=== PATIENT | male | born 1965 | race Caucasian/White ===

== ENCOUNTER 2019-05-08 16:02 | Emergency (ER) | payer BC, OTHER ==
[~2019-05-08 16:02] MED LIST: HYDR-3165 PO
--- NOTE | 2019-05-08 16:24 | PHYS DOC ---
Past History Past Medical History: Diverticulitis (PARUL CARLTON Jr. DO) Past Surgical History: Other (PARUL CARLTON Jr., DO) Alcohol Use: None Drug Use: None (PARUL CARLTON Jr., DO) Adult General Chief Complaint Chief Complaint: Abd pain [facility] Patient is a 53-year-old male who presents with complaint of left lower quadrant abdominal pain that started 2 days ago. Patient rates pain at about a 4 out of 10. He states that he does have a history of diverticulitis and states that his last episode was about 4 years ago. He denies any nausea or vomiting. He also denies any diarrhea. He has had some constipation. He states the pain is worsened with palpation. He states that nothing has been improving symptoms.[] (PARUL CARLTON Jr., DO) Review of Systems Review of Systems Constitutional: Denies fever or chills [] Respiratory: Denies cough or shortness of breath [] Cardiovascular: No additional information not addressed in [facility] [] GI: Complains of left lower quadrant abdominal pain without vomiting or diarrhea [] : Denies dysuria or hematuria [] Integument: Denies rash or skin lesions [] Neurologic: Denies headache, focal weakness or sensory changes [] All other systems were reviewed and found to be within normal limits, except as documented in this note. (PARUL CARLTON Jr., DO) Allergies Allergies Allergies Coded Allergies Type Severity Reaction Last Updated Verified Sulfa (Sulfonamide Antibiotics) Adverse Reaction Intermediate feet swelled up 01/05/15 Yes (PARUL CARLTON Jr., DO) Physical Exam Physical Exam Constitutional: Well developed, well nourished, no acute distress, non-toxic appearance. [] HENT: Normocephalic, atraumatic, bilateral external ears normal, oropharynx moist, no oral exudates, nose normal. [] Eyes: PERRLA, EOMI, conjunctiva normal, no discharge. [] Neck: Normal range of motion, no tenderness, supple, no stridor. [] Cardiovascular: Regular rate rhythm[] Lungs & Thorax: Bilateral breath sounds clear to auscultation [] Abdomen: Bowel sounds normal, soft, with moderate left lower quadrant tenderness. [] Skin: Warm, dry, no erythema, no rash. [] Extremities: No tenderness, no cyanosis, no clubbing, ROM intact. [] Neurologic: Alert and oriented X 3, no focal deficits noted. [] (PARUL CARLTON Jr. DO) EKG EKG [] (PARUL CARLTON Jr. DO) Radiology/Procedures Radiology/Procedures [] Impressions: PROCEDURE: CT ABD PELV W/ IV CONTRST ONLY EXAM: Abdomen and pelvis CT with intravenous contrast. HISTORY: Pain. TECHNIQUE: Computed tomographic images of the abdomen and pelvis were obtained following the administration of 75 cc Isovue 370 intravenous contrast. Multiplanar reformatting was performed. *One or more of the following individualized dose reduction techniques were utilized for this examination: 1. Automated exposure control. 2. Adjustment of the mA and/or kV according to patient size. 3. Use of iterative reconstruction technique. COMPARISON: None. FINDINGS: Evaluation of the lower thorax is unremarkable. No hepatic lesion is seen. The gallbladder, pancreas, spleen and adrenal glands are unremarkable. There is mild nonspecific perinephric stranding. There is no hydronephrosis or suspicious solid or cystic renal lesion. The bladder is unremarkable. There is no appendicitis. There is no bowel obstruction. There is distal colonic diverticulosis. There is superimposed acute diverticulitis involving the mid sigmoid colon with associated contained perforation and abscess. The abscess measures approximate 8.5 cm in maximum dimension with surrounding inflammatory stranding. There are few reactive lymph nodes surrounding the aforementioned diverticular abscess. The aorta is normal in caliber. There is no suspicious osseous lesion. There are advanced degenerative changes involving the spine. IMPRESSION: 1. Acute diverticulitis involving the mid sigmoid colon with associated contained perforation and complex gas and fluid collection with surrounding stranding due to abscess formation. The abscess collection measures approximately 8.5 cm in maximum dimension. 2. Reactive lymphadenopathy surrounding the aforementioned mid sigmoid colon. Electronically signed by: Madison Lynn MD (05/08/2019 5:39 PM) [facility] DICTATED AND SIGNED BY: MADISON LYNN MD DATE: 05/08/191738 (PARUL CARLTON Jr. DO) Radiology/Procedures [address] [address] IMAGING REPORT Signed PATIENT: AARTI LOZANO AACCOUNT: [id number] : 1965 LOCATION: ER AGE: 53 SEX: M EXAM STATUS: PRE ER ORD. PHYSICIAN: PARUL CARLTON Jr., DO REASON: LLQ abd pain PROCEDURE: CT ABD PELV W/ IV CONTRST ONLY EXAM: Abdomen and pelvis CT with intravenous contrast. HISTORY: Pain. TECHNIQUE: Computed tomographic images of the abdomen and pelvis were obtained following the administration of 75 cc Isovue 370 intravenous contrast. Multiplanar reformatting was performed. *One or more of the following individualized dose reduction techniques were utilized for this examination: 1. Automated exposure control. 2. Adjustment of the mA and/or kV according to patient size. 3. Use of iterative reconstruction technique. COMPARISON: None. FINDINGS: Evaluation of the lower thorax is unremarkable. No hepatic lesion is seen. The gallbladder, pancreas, spleen and adrenal glands are unremarkable. There is mild nonspecific perinephric stranding. There is no hydronephrosis or suspicious solid or cystic renal lesion. The bladder is unremarkable. There is no appendicitis. There is no bowel obstruction. There is distal colonic diverticulosis. There is superimposed acute diverticulitis involving the mid sigmoid colon with associated contained perforation and abscess. The abscess measures approximate 8.5 cm in maximum dimension with surrounding inflammatory stranding. There are few reactive lymph nodes surrounding the aforementioned diverticular abscess. The aorta is normal in caliber. There is no suspicious osseous lesion. There are advanced degenerative changes involving the spine. IMPRESSION: 1. Acute diverticulitis involving the mid sigmoid colon with associated contained perforation and complex gas and fluid collection with surrounding stranding due to abscess formation. The abscess collection measures approximately 8.5 cm in maximum dimension. 2. Reactive lymphadenopathy surrounding the aforementioned mid sigmoid colon. Electronically signed by: Madison Lynn MD (05/08/2019 5:39 PM) [facility] DICTATED AND SIGNED BY: MADISON LYNN MD DATE: 05/08/19 1739 CC: PARUL CARLTON Jr., DO; AARTI WARREN MD ~ (SIENA ULLOA MD) Course & Med Decision Making Course & Med Decision Making Pertinent Labs and Imaging studies reviewed. (See chart for details) [] (PARUL CARLTON Jr., DO) Course & Med Decision Making See Dr. Carlton report for details and transfer. Impression: 1. Diverticular Abscess 8.5 cm 2. Leukocytosis 15.4 with 72 Segs 3. Albumin 2.7 Pt. requesting pain meds prior to his transfer. Hx. 3 prior rupture Diverticulitis episodes- no surgery required on those episodes. Will add Flagyl 500 and Morphine 10 SQ. Pending ambulance transfer at 1930 hrs. (SIENA ULLOA MD) Dragon Disclaimer Dragon Disclaimer This electronic medical record was generated, in whole or in part, using a voice recognition dictation system. (PARUL CARLTON Jr. DO) Departure Departure: Impression: Primary Impression: Diverticulitis of colon with perforation Disposition: [facility]-TR[facility] HOSP Condition: IMPROVED Referrals: AARTI WARREN MD (PCP) Dragtiti Disclaimer This chart was dictated in whole or in part using Voice Recognition software in a busy, high-work load, and often noisy Emergency Department environment. It may contain unintended and wholly unrecognized errors or omissions. (SIENA ULLOA MD) Problem Qualifiers Primary Impression: Diverticulitis of colon with perforation Diverticulitis bleeding: without bleeding Qualified Codes: K57.20 - Diverticulitis of large intestine with perforation and abscess without bleeding PARUL CARLTON Jr. DO May 08, 2019 16:24 SIENA ULLOA MD May 08, 2019 19:28
[2019-05-08] MEDS ORDERED: IOHEXOL 300 MG/ML 75 ML VIAL. IV ONE (16:45)
[2019-05-08 16:48] LABS: BASO # 0.1 x10^3/uL (0.0-0.2); BASO % 1 % (0-3); EOS # 0.1 x10^3/uL (0.0-0.7); EOS % 1 % (0-3); HEMATOCRIT 44.3 % (39.0-53.0); HEMOGLOBIN 14.3 g/dL (13.0-17.5); LYMPH # 1.4 x10^3/uL (1.0-4.8); LYMPH % 9 % (24-48); MEAN CORPUSCULAR HEMOGLOBIN 28 pg (25-35); MEAN CORPUSCULAR HGB CONC 32 g/dL (31-37); MEAN CORPUSCULAR VOLUME 88 fL (79-100); MONO # 1.3 x10^3/uL (0.0-1.1); MONO % 9 % (0-9); NEUT # 12.5 x10^3uL (1.8-7.7); NEUT % 81 % (31-73); PLATELET COUNT 288 x10^3/uL (140-400); RED BLOOD COUNT 5.02 x10^6/uL (4.30-5.70); RED CELL DISTRIBUTION WIDTH 13.4 % (11.5-14.5); WHITE BLOOD COUNT 15.4 x10^3/uL (4.0-11.0)
[2019-05-08 17:04] LABS: ALBUMIN 2.7 g/dL (3.4-5.0); ALBUMIN/GLOBULIN RATIO 0.6 (1.0-1.7); CALCIUM 8.7 mg/dL (8.5-10.1); CREATININE 0.9 mg/dL (0.7-1.3); POTASSIUM 4.2 mmol/L (3.5-5.1); TOTAL BILIRUBIN 0.3 mg/dL (0.2-1.0)
[2019-05-08 17:14] LABS: % BANDS 7 % (0-9); % LYMPHS 12 % (24-48); % MONOS 9 % (0-10); % SEGS 72 % (35-66); PLT ESTIMATE ADEQUATE (ADEQUATE)
[2019-05-08 17:15] LABS: HYPERSEGS PRESENT; TOXIC GRANULATION SLIGHT; TOXIC VACUOLATION SLIGHT
--- NOTE | 2019-05-08 17:42 | RAD ---
EXAM: Abdomen and pelvis CT with intravenous contrast. HISTORY: Pain. TECHNIQUE: Computed tomographic images of the abdomen and pelvis were obtained following the administration of 75 cc Isovue 370 intravenous contrast. Multiplanar reformatting was performed. *One or more of the following individualized dose reduction techniques were utilized for this examination: 1. Automated exposure control. 2. Adjustment of the mA and/or kV according to patient size. 3. Use of iterative reconstruction technique. COMPARISON: None. FINDINGS: Evaluation of the lower thorax is unremarkable. No hepatic lesion is seen. The gallbladder, pancreas, spleen and adrenal glands are unremarkable. There is mild nonspecific perinephric stranding. There is no hydronephrosis or suspicious solid or cystic renal lesion. The bladder is unremarkable. There is no appendicitis. There is no bowel obstruction. There is distal colonic diverticulosis. There is superimposed acute diverticulitis involving the mid sigmoid colon with associated contained perforation and abscess. The abscess measures approximate 8.5 cm in maximum dimension with surrounding inflammatory stranding. There are few reactive lymph nodes surrounding the aforementioned diverticular abscess. The aorta is normal in caliber. There is no suspicious osseous lesion. There are advanced degenerative changes involving the spine. IMPRESSION: 1. Acute diverticulitis involving the mid sigmoid colon with associated contained perforation and complex gas and fluid collection with surrounding stranding due to abscess formation. The abscess collection measures approximately 8.5 cm in maximum dimension. 2. Reactive lymphadenopathy surrounding the aforementioned mid sigmoid colon. Electronically signed by: Madison Baugh MD (05/08/2019 5:39 PM) [facility]
[2019-05-08] MEDS ORDERED: PIPERACILLIN/TAZOBACTAM 4.5 GM VIAL IV ONE (17:59)
[2019-05-08] MEDS ORDERED: IV NORMAL SALINE 50ML 50 ML ONE (17:59)
[2019-05-08] MEDS ORDERED: PIPERACILLIN/TAZOBACTAM 4.5 GM in IV NORMAL SALINE 50ML 50 ML IV ONE (18:00)
[2019-05-08] MEDS ORDERED: IV NORMAL SALINE 1,000ML 1,000 ML IV ONE (18:15)
[2019-05-08 19:01] LABS: BILIRUBIN,URINE NEG (NEG); CLARITY,URINE CLEAR; COLOR,URINE YELLOW; GLUCOSE,URINE NEG (NEG)
[2019-05-08 19:02] LABS: BACTERIA,URINE 0 /HPF (0-FEW); NITRITE,URINE NEG (NEG); RBC,URINE OCC /HPF (0-2); SQUAMOUS EPITHELIAL CELL,UR OCC /LPF; UROBILINOGEN,URINE 0.2 mg/dL (0.2 mg/dL); WBC,URINE 0 /HPF (0-4)
[2019-05-08] MEDS ORDERED: MORPHINE SULFATE 10 MG/ML SYRINGE. SQ ONE (19:30)
[2019-05-08 20:31] VITALS: BP 143/78
== END 2019-05-08 20:49 | disposition short-term general hospital (02) ==
LOC: ER 16:02
DX: K57.20 Diverticulitis of large intestine with perforation and abscess without bleeding (principal); D72.829 Elevated white blood cell count, unspecified; Z88.2 Allergy status to sulfonamides
CPT/HCPCS: 36415; 74177; 80053; 81001; 83690; 85007; 85025; 96365; 96367; 96372; 99285; J2270; J2543; J3490; Q9967; J7030

== ENCOUNTER 2019-05-18 18:35 | Emergency (ER) | payer BC ==
[~2019-05-18] VITALS: Ht 188 cm; Wt 112.9 kg
[2019-05-18] MEDS ORDERED: IV NORMAL SALINE 1,000ML 1,000 ML IV SCH (19:17)
[2019-05-18] MEDS ORDERED: IOHEXOL 300 MG/ML 75 ML VIAL. IV ONE (19:30)
--- NOTE | 2019-05-18 19:53 | PHYS DOC ---
Past History Past Medical History: Diverticulitis Past Surgical History: Other Additional Past Surgical Histo: GI drain Alcohol Use: None Drug Use: None Adult General Chief Complaint Chief Complaint: ABNORMAL LABS HPI HPI Patient is a 53 year old male who presents with complaint of abdominal pain. Patient was initially seen in the emergency department here at [place] on May 08, 2019. The patient was diagnosed with perforated diverticulitis and was transferred to [facility]. The patient was there for approximately one week and discharged after having a percutaneous drain placed while in the hospital. He was treated with IV Zosyn and was bridged to oral Cipro on discharge. Patient states strain was removed prior to discharge. The patient followed up with his primary doctor who repeated blood work today. Blood remarkable for a leukocytosis of 13.7. The patient states that over the past couple days he has felt increased fatigue and states that he is not feeling better at this time. He states he was told by his surgeon, Dr. Turner, that he should come back to the emergency department if symptoms were worsening. Denies any known fever. States he has continued left lower quadrant pain. Review of Systems Review of Systems Constitutional: Denies fever or chills [] Eyes: Denies change in visual acuity, redness, or eye pain [] HENT: Denies nasal congestion or sore throat [] Respiratory: Denies cough or shortness of breath [] Cardiovascular: Denies chest pain or edema[] GI: Abdominal pain, decreased appetite, constipation[] : Denies dysuria or hematuria [] Musculoskeletal: Denies back pain or joint pain [] Integument: Denies rash or skin lesions [] Neurologic: Denies headache, focal weakness or sensory changes [] All other systems were reviewed and found to be within normal limits, except as documented in this note. Current Medications Current Medications Current Medications Medications (Trade) Dose Ordered Sig/Thee Start Time Stop Time Status Last Admin Dose Admin Iohexol (Omnipaque 300 Mg/ml) 75 ml 1X ONCE 05/18/19 19:30 05/18/19 19:31 DC 05/18/19 19:35 75 ML Sodium Chloride 1,000 ml @ 1,000 mls/hr Q1H 05/18/19 19:17 05/18/19 20:16 05/18/19 19:17 1,000 MLS/HR Allergies Allergies Allergies Coded Allergies Type Severity Reaction Last Updated Verified Sulfa (Sulfonamide Antibiotics) Adverse Reaction Intermediate feet swelled up 01/05/15 Yes Physical Exam Physical Exam Constitutional: Alert, afebrile, appears in mild discomfort. [] HENT: Normocephalic, atraumatic, bilateral external ears normal, oropharynx moist, no oral exudates, nose normal. [] Eyes: PERRLA, EOMI, conjunctiva normal, no discharge. [] Neck: Normal range of motion, no tenderness, supple, no stridor. [] Cardiovascular:Heart rate regular rhythm, no murmur [] Lungs & Thorax: Bilateral breath sounds clear to auscultation [] Abdomen: Left lower quadrant tenderness to palpation with guarding, no rebound tenderness, hypoactive bowel sounds, percutaneous drain site appears clean, nonerythematous. [] Skin: Warm, dry, no erythema, no rash. [] Back: No tenderness, no CVA tenderness. [] Extremities: No tenderness, no cyanosis, no clubbing, ROM intact, no edema. [] Neurologic: Alert and oriented X 3, normal motor function, normal sensory function, no focal deficits noted. [] Current Patient Data Vital Signs Vital Signs Date Time Temp Pulse Resp B/P (MAP) Pulse Ox O2 Delivery O2 Flow Rate FiO2 05/18/19 19:10 98.1 76 16 98 Room Air Lab Results Current Medications Medications (Trade) Dose Ordered Sig/Thee Route PRN Reason Start Time Stop Time Status Last Admin Dose Admin Sodium Chloride 1,000 ml @ 1,000 mls/hr Q1H IV 05/18/19 19:17 05/18/19 20:16 DC 05/18/19 19:17 Iohexol (Omnipaque 300 Mg/ml) 75 ml 1X ONCE IV 05/18/19 19:30 05/18/19 19:31 DC 05/18/19 19:35 Piperacillin Sod/ Tazobactam Sod (Zosyn Per Pharmacy) 1 each PRN DAILY PRN MC SEE COMMENTS 05/18/19 21:00 UNV EKG EKG Not performed[] Radiology/Procedures Radiology/Procedures [address] [address] IMAGING REPORT Signed PATIENT: AARTI LOZANO AACCOUNT: [id number] : 1965 LOCATION: ER AGE: 53 SEX: M EXAM STATUS: REG ER ORD. PHYSICIAN: NIVIA GOMEZ MD REASON: Elevated WBC, recent perforated diverticulitis, weakness, dizzine PROCEDURE: CT ABD PELV W/ IV CONTRST ONLY Exam: CT abdomen and pelvis with contrast INDICATION: History of diverticulitis, elevated white blood cell count TECHNIQUE: Sequential axial images through the abdomen and pelvis obtained following the administration of 70 mL of Omni 300 IV contrast. Sagittal and coronal reformatted images were reconstructed from the axial data and reviewed. Comparisons: 05/08/2019 FINDINGS: Heart size is normal. No pericardial effusion. Visualized lung bases are clear. No pleural effusion. Liver, spleen, pancreas, gallbladder and adrenals are unremarkable. Kidneys demonstrate symmetric enhancement without perinephric inflammation or hydronephrosis. No renal or ureteral calculi are identified. Bladder is distended and appears thin-walled. Prostate is not enlarged. There is extensive inflammatory changes at the sigmoid colon in an area of diverticulosis. There is redemonstration of air and fluid collection within the mesentery just above the sigmoid colon measuring approximately 7.5 x 5.1 cm. Supposedly tract from prior drain is seen from the anterior abdominal wall. The remainder of the large and small bowel are unremarkable. No obstruction. No free intra-abdominal air or fluid. Abdominal aorta has a normal course and caliber. Abdominal vasculature is patent. No enlarged intra-abdominal lymph nodes are identified. No suspicious osseous lesions or acute fractures. IMPRESSION: Acute diverticulitis at the sigmoid colon with redemonstration of an air-fluid collection representing a contained perforation just above the area of acute diverticulitis measuring approximately 7.5 x 5.1 cm. There is an apparent tract from prior drain noted extending from the anterior abdominal wall. Exposure: One or more of the following in the visualized dose reduction techniques were utilized for this examination: 1. Automated exposure control 2. Adjustment of the MA and/or KV according to patient size 3. Use of iterative of reconstructive technique Electronically signed by: Nancy Hickman MD (05/18/2019 8:32 PM) [facility] DICTATED AND SIGNED BY: NANCY HICKMAN MD DATE: 05/18/192031 CC: AARTI WARREN MD; NIVIA GOMEZ MD ~ [] Course & Med Decision Making Course & Med Decision Making Pertinent Labs and Imaging studies reviewed. (See chart for details) The patient was started on IV fluids and given Zofran in the emergency departmen t. Repeat CT imaging shows continued diverticulitis with redemonstration of left lower quadrant fluid collection. I contacted Dr. Andre who was on-call for general surgery and spoke with him regarding the case. He stated that it would be appropriate for patient to return to the hospital for continued IV antibiotics and reevaluation for potential need for surgical intervention. Spoke with patient regarding plan of care and he was in agreement with this. As we are unable to provide surgical services here at [facility], the patient will need transfer to [facility] for further care. I spoke with Dr. Rogers who agreed to accept patient for transfer. Patient will be transferred by ground ambulance to [facility]. Spoke with patient regarding plan of care and he is in agreement at time of disposition.[] Dragon Disclaimer Dragon Disclaimer This electronic medical record was generated, in whole or in part, using a voice recognition dictation system. Departure Departure: Impression: Primary Impression: Diverticulitis of colon with perforation Disposition: XFER [facility]-TRM HOSP Condition: STABLE Referrals: AARTI WARREN MD (PCP) Problem Qualifiers Primary Impression: Diverticulitis of colon with perforation Diverticulitis bleeding: without bleeding Qualified Codes: K57.20 - Diverticulitis of large intestine with perforation and abscess without bleeding NIVIA GOMEZ MD May 18, 2019 19:53
--- NOTE | 2019-05-18 20:35 | RAD ---
Exam: CT abdomen and pelvis with contrast INDICATION: History of diverticulitis, elevated white blood cell count TECHNIQUE: Sequential axial images through the abdomen and pelvis obtained following the administration of 70 mL of Omni 300 IV contrast. Sagittal and coronal reformatted images were reconstructed from the axial data and reviewed. Comparisons: 05/08/2019 FINDINGS: Heart size is normal. No pericardial effusion. Visualized lung bases are clear. No pleural effusion. Liver, spleen, pancreas, gallbladder and adrenals are unremarkable. Kidneys demonstrate symmetric enhancement without perinephric inflammation or hydronephrosis. No renal or ureteral calculi are identified. Bladder is distended and appears thin-walled. Prostate is not enlarged. There is extensive inflammatory changes at the sigmoid colon in an area of diverticulosis. There is redemonstration of air and fluid collection within the mesentery just above the sigmoid colon measuring approximately 7.5 x 5.1 cm. Supposedly tract from prior drain is seen from the anterior abdominal wall. The remainder of the large and small bowel are unremarkable. No obstruction. No free intra-abdominal air or fluid. Abdominal aorta has a normal course and caliber. Abdominal vasculature is patent. No enlarged intra-abdominal lymph nodes are identified. No suspicious osseous lesions or acute fractures. IMPRESSION: Acute diverticulitis at the sigmoid colon with redemonstration of an air-fluid collection representing a contained perforation just above the area of acute diverticulitis measuring approximately 7.5 x 5.1 cm. There is an apparent tract from prior drain noted extending from the anterior abdominal wall. Exposure: One or more of the following in the visualized dose reduction techniques were utilized for this examination: 1. Automated exposure control 2. Adjustment of the MA and/or KV according to patient size 3. Use of iterative of reconstructive technique Electronically signed by: Nancy Ann MD (05/18/2019 8:32 PM) [facility]
[2019-05-18] MEDS ORDERED: PIP/TAZO PER PHARMACY MC PRN (21:00)
[2019-05-18] MEDS ORDERED: PIPERACILLIN/TAZOBACTAM 4.5 GM in IV NORMAL SALINE 50ML 50 ML IV ONE (21:30)
[2019-05-18] MEDS ORDERED: IV NORMAL SALINE 50ML 50 ML ONE (21:32)
[2019-05-18] MEDS ORDERED: PIPERACILLIN/TAZOBACTAM 4.5 GM VIAL IV ONE (21:32)
[2019-05-18 21:42] VITALS: BP 134/83
== END 2019-05-18 22:25 | disposition short-term general hospital (02) ==
LOC: ER 18:35
DX: K57.20 Diverticulitis of large intestine with perforation and abscess without bleeding (principal); Z88.2 Allergy status to sulfonamides
CPT/HCPCS: 74177; 96365; 99285; J2543; Q9967; J7030

== ENCOUNTER → 2019-05-18 | Outpatient (CLI) | payer BC ==
[2019-05-08 20:31] VITALS: BP 143/78
[2019-05-18 13:17] LABS: BASO # 0.2 x10^3/uL (0.0-0.2); BASO % 1 % (0-3); EOS # 0.1 x10^3/uL (0.0-0.7); EOS % 1 % (0-3); HEMATOCRIT 46.5 % (39.0-53.0); HEMOGLOBIN 15.1 g/dL (13.0-17.5); LYMPH # 1.5 x10^3/uL (1.0-4.8); LYMPH % 11 % (24-48); MEAN CORPUSCULAR HEMOGLOBIN 28 pg (25-35); MEAN CORPUSCULAR HGB CONC 32 g/dL (31-37); MEAN CORPUSCULAR VOLUME 87 fL (79-100); MONO # 0.9 x10^3/uL (0.0-1.1); MONO % 7 % (0-9); NEUT % 80 % (31-73); PLATELET COUNT 418 x10^3/uL (140-400); RED BLOOD COUNT 5.36 x10^6/uL (4.30-5.70); RED CELL DISTRIBUTION WIDTH 13.4 % (11.5-14.5); WHITE BLOOD COUNT 13.7 x10^3/uL (4.0-11.0)
[2019-05-18 13:31] LABS: ALBUMIN 2.7 g/dL (3.4-5.0); ALBUMIN/GLOBULIN RATIO 0.6 (1.0-1.7); CALCIUM 9.4 mg/dL (8.5-10.1); CREATININE 0.7 mg/dL (0.7-1.3); GFR 118.9; POTASSIUM 4.2 mmol/L (3.5-5.1); TOTAL BILIRUBIN 0.4 mg/dL (0.2-1.0); TOTAL PROTEIN 7.4 g/dL (6.4-8.2)
[2019-05-18 14:25] LABS: SEDIMENTATION RATE 41 (0-15)
== END | disposition home or self-care (01) ==
LOC: LAB 12:43
PROVIDERS: ATTEND Family Medicine
DX: K57.20 Diverticulitis of large intestine with perforation and abscess without bleeding (principal)
CPT/HCPCS: 36415; 80053; 85025; 85651

== ENCOUNTER → 2019-06-10 | Outpatient (CLI) | payer BC ==
[2019-05-18 21:42] VITALS: BP 134/83
[2019-06-10 10:45] LABS: BASO # 0.1 x10^3/uL (0.0-0.2); BASO % 1 % (0-3); EOS # 0.6 x10^3/uL (0.0-0.7); EOS % 5 % (0-3); HEMOGLOBIN 12.6 g/dL (13.0-17.5); LYMPH # 1.7 x10^3/uL (1.0-4.8); LYMPH % 14 % (24-48); MEAN CORPUSCULAR HEMOGLOBIN 28 pg (25-35); MEAN CORPUSCULAR HGB CONC 33 g/dL (31-37); MEAN CORPUSCULAR VOLUME 84 fL (79-100); MONO # 0.7 x10^3/uL (0.0-1.1); MONO % 6 % (0-9); NEUT # 9.2 x10^3uL (1.8-7.7); NEUT % 76 % (31-73); PLATELET COUNT 347 x10^3/uL (140-400); RED BLOOD COUNT 4.51 x10^6/uL (4.30-5.70); WHITE BLOOD COUNT 12.2 x10^3/uL (4.0-11.0)
[2019-06-10 11:08] LABS: ALBUMIN 2.3 g/dL (3.4-5.0); ALBUMIN/GLOBULIN RATIO 0.5 (1.0-1.7); CALCIUM 9.2 mg/dL (8.5-10.1); CREATININE 0.9 mg/dL (0.7-1.3); GFR 88.6; POTASSIUM 4.1 mmol/L (3.5-5.1); TOTAL BILIRUBIN 0.4 mg/dL (0.2-1.0); TOTAL PROTEIN 6.7 g/dL (6.4-8.2)
== END | disposition home or self-care (01) ==
LOC: LAB 09:12
PROVIDERS: ATTEND Family Medicine
DX: K57.20 Diverticulitis of large intestine with perforation and abscess without bleeding (principal)
CPT/HCPCS: 36415; 80053; 85025

== ENCOUNTER → 2019-06-16 | Outpatient (CLI) | payer BC ==
[2019-05-18 21:42] VITALS: BP 134/83
[2019-06-16 18:14] LABS: BASO # 0.1 x10^3/uL (0.0-0.2); BASO % 1 % (0-3); EOS # 0.2 x10^3/uL (0.0-0.7); EOS % 2 % (0-3); HEMATOCRIT 35.9 % (39.0-53.0); HEMOGLOBIN 11.8 g/dL (13.0-17.5); LYMPH # 1.5 x10^3/uL (1.0-4.8); LYMPH % 16 % (24-48); MEAN CORPUSCULAR HEMOGLOBIN 28 pg (25-35); MEAN CORPUSCULAR HGB CONC 33 g/dL (31-37); MEAN CORPUSCULAR VOLUME 85 fL (79-100); MONO # 0.6 x10^3/uL (0.0-1.1); MONO % 7 % (0-9); NEUT # 6.8 x10^3uL (1.8-7.7); NEUT % 74 % (31-73); PLATELET COUNT 370 x10^3/uL (140-400); RED BLOOD COUNT 4.23 x10^6/uL (4.30-5.70); RED CELL DISTRIBUTION WIDTH 14.3 % (11.5-14.5); WHITE BLOOD COUNT 9.1 x10^3/uL (4.0-11.0)
== END | disposition home or self-care (01) ==
LOC: LAB 16:58
PROVIDERS: ATTEND Family Medicine
DX: K57.20 Diverticulitis of large intestine with perforation and abscess without bleeding (principal)
CPT/HCPCS: 36415; 85025

== ENCOUNTER 2020-10-03 18:01 | Inpatient (IN) | payer BC ==
[~2020-10-03] VITALS: Ht 188 cm; Wt 126.0 kg
[2020-10-03 18:38] LABS: BASO % 0 % (0-3); EOS # 0.1 x10^3/uL (0.0-0.7); EOS % 1 % (0-3); HEMATOCRIT 49.5 % (39.0-53.0); HEMOGLOBIN 16.5 g/dL (13.0-17.5); LYMPH % 19 % (24-48); MEAN CORPUSCULAR HEMOGLOBIN 30 pg (25-35); MEAN CORPUSCULAR HGB CONC 33 g/dL (31-37); MEAN CORPUSCULAR VOLUME 91 fL (79-100); MONO % 10 % (0-9); NEUT % 70 % (31-73); PLATELET COUNT 164 x10^3/uL (140-400); RED BLOOD COUNT 5.47 x10^6/uL (4.30-5.70); RED CELL DISTRIBUTION WIDTH 13.8 % (11.5-14.5); WHITE BLOOD COUNT 10.1 x10^3/uL (4.0-11.0)
[2020-10-03 18:44] LABS: CALCIUM 8.9 mg/dL (8.5-10.1); GFR 78.2; POTASSIUM 4.2 mmol/L (3.5-5.1)
[2020-10-03 18:57] LABS: ALBUMIN 3.7 g/dL (3.4-5.0); DIRECT BILIRUBIN 0.1 mg/dL (0.0-0.2); MAGNESIUM 1.7 mg/dL (1.8-2.4); TOTAL BILIRUBIN 0.7 mg/dL (0.2-1.0); TOTAL PROTEIN 7.2 g/dL (6.4-8.2)
[2020-10-03 21:01] LABS: AMPHETAMINE/METHAMPHETAMINE NEG (NEG); BARBITURATES NEG (NEG); BENZODIAZEPINES NEG (NEG); CANNABINOIDS NEG (NEG); COCAINE NEG (NEG); METHADONE NEG (NEG); OPIATES POS (NEG); PHENCYCLIDINE NEG (NEG)
[2020-10-03 21:03] LABS: BACTERIA,URINE 0 /HPF (0-FEW); BILIRUBIN,URINE NEG (NEG); CLARITY,URINE CLEAR; COLOR,URINE YELLOW; GLUCOSE,URINE NEG (NEG); NITRITE,URINE NEG (NEG); RBC,URINE 0 /HPF (0-2); UROBILINOGEN,URINE 0.2 mg/dL (0.2 mg/dL); WBC,URINE 0 /HPF (0-4)
[2020-10-03] MEDS ORDERED: RIVA20TA2 PO (22:50)
[2020-10-03] MEDS ORDERED: METO50TA29 PO (22:50)
[2020-10-03] MEDS ORDERED: AMIO200T6 PO (22:50)
[2020-10-04 07:58] LABS: BASO % 0 % (0-3); EOS % 0 % (0-3); HEMATOCRIT 46.6 % (39.0-53.0); HEMOGLOBIN 15.6 g/dL (13.0-17.5); LYMPH # 1.3 x10^3/uL (1.0-4.8); LYMPH % 13 % (24-48); MEAN CORPUSCULAR HEMOGLOBIN 31 pg (25-35); MEAN CORPUSCULAR HGB CONC 34 g/dL (31-37); MEAN CORPUSCULAR VOLUME 91 fL (79-100); MONO # 1.1 x10^3/uL (0.0-1.1); MONO % 11 % (0-9); NEUT % 76 % (31-73); PLATELET COUNT 146 x10^3/uL (140-400); RED BLOOD COUNT 5.12 x10^6/uL (4.30-5.70); RED CELL DISTRIBUTION WIDTH 13.8 % (11.5-14.5); WHITE BLOOD COUNT 10.5 x10^3/uL (4.0-11.0)
[2020-10-04 08:03] LABS: CALCIUM 8.5 mg/dL (8.5-10.1); CREATININE 0.9 mg/dL (0.7-1.3); GFR 88.3; POTASSIUM 3.7 mmol/L (3.5-5.1)
[2020-10-04] MEDS ORDERED: POTA20TA4 PO (13:47)
[2020-10-04] MEDS ORDERED: FURO-68 PO (13:47)
[2020-10-04 13:50] LABS: THYROID STIM HORMONE (TSH) 1.439 uIU/mL (0.358-3.740)
[2020-10-04 15:00] VITALS: BP 108/74
== END 2020-10-04 13:55 | disposition home or self-care (01) | DRG 313 ==
LOC: ER 18:01 → 1 SOUTH 21:36
PROVIDERS: ADMIT Internal Medicine; ATTEND Internal Medicine
DX: R07.89 Other chest pain (principal); I50.43 Acute on chronic combined systolic (congestive) and diastolic (congestive) heart failure; I42.9 Cardiomyopathy, unspecified; I11.0 Hypertensive heart disease with heart failure; I48.91 Unspecified atrial fibrillation; E78.5 Hyperlipidemia, unspecified; R00.0 Tachycardia, unspecified; E83.42 Hypomagnesemia; Z79.01 Long term (current) use of anticoagulants; E66.01 Morbid (severe) obesity due to excess calories; Z68.35 Body mass index [BMI] 35.0-35.9, adult; Z88.2 Allergy status to sulfonamides
CPT/HCPCS: 36415; 71045; 80048; 80061; 80076; 80307; 81001; 82550; 83690; 83735; 83880; 84443; 84484; 85025; 85379; 85610; 85730; 93005; 94640; 96361; 96374; G0238; J1940; J2270; J3475; J7120; 99285-25